=== PATIENT | female | born 1955 | race Caucasian/White ===

== ENCOUNTER → 2019-06-28 | Outpatient (CLI) | payer OTHER ==
[~2019-06-28] MED LIST: AMLO5 PO; Aldactone25 MG PO; Ativan1 MG PO; BISHYD10 PO; BISO5 PO; BUDE10.22 IH; BUDE10.22 INH; CEPH500 PO; CHOL10002 PO; FORM12IH INH; Hydrochlorothia25 MG PO; K-Dur10 MEQ PO; METO50ER PO; SPIR25 PO; SULTRIDS PO; TIOT18 INH; VENL37.5ER PO
== END | disposition home or self-care (01) ==
LOC: PLD 10:03 → LAB SHORT 10:03
DX: D22.71 Melanocytic nevi of right lower limb, including hip (principal); D22.62 Melanocytic nevi of left upper limb, including shoulder
CPT/HCPCS: 88305

== ENCOUNTER → 2021-04-08 | Outpatient (CLI) | payer OTHER ==
[~2021-04-08] MED LIST changes: +ADVAIR HFA 230-28 GM INH; +ALBU2.5V5 NEB; -BUDE10.22 INH; +CLON.5 PO; +HYDCHL12.5 PO; +LORAZEPAM0.5 MG PO; +LOSA50 PO; +PRED20 PO; +ROFL500T PO; +SERT25 PO; +VITAMIN D31000 UNI1 PO; +Ventolin/Prove6.7 GM INH
== END | disposition home or self-care (01) ==
LOC: LAB SHORT 15:02 → LAB 15:02
DX: D22.61 Melanocytic nevi of right upper limb, including shoulder (principal)
CPT/HCPCS: 88305

== ENCOUNTER 2021-06-03 15:56 | Inpatient (IN) | payer OTHER | END 2021-06-07 17:15 | disposition home or self-care (01) | DRG 189 | LOC: ER 15:56 → ERHOLD 22:07 → PCU 06-04 00:43 → MEDS 06-05 14:23 | PROVIDERS: ADMIT Internal Medicine | PROC: 5A09457 Assistance with Respiratory Ventilation, 24-96 Consecutive Hours, Continuous Positive Airway Pressure (ICD-10-PCS; principal; 2021-06-03) | DX: J96.01 Acute respiratory failure with hypoxia (principal); J44.1 Chronic obstructive pulmonary disease with (acute) exacerbation; I10 Essential (primary) hypertension; D72.829 Elevated white blood cell count, unspecified; T38.0X5A Adverse effect of glucocorticoids and synthetic analogues, initial encounter; E21.3 Hyperparathyroidism, unspecified; E83.52 Hypercalcemia; F41.9 Anxiety disorder, unspecified; Z98.41 Cataract extraction status, right eye; Z98.42 Cataract extraction status, left eye; Z90.49 Acquired absence of other specified parts of digestive tract; Z98.890 Other specified postprocedural states; Z88.0 Allergy status to penicillin; Z88.8 Allergy status to other drugs, medicaments and biological substances; Z79.51 Long term (current) use of inhaled steroids; Z79.52 Long term (current) use of systemic steroids; Z79.899 Other long term (current) drug therapy ==

== ENCOUNTER → 2021-06-15 | Outpatient (CLI) | payer OTHER ==
[2021-06-15 15:55] LABS: BASOPHILS ABSOLUTE AUTO 0.04 K/mm3 (0.00-0.23); BASOPHILS PERCENT AUTO 0 % (0-2); EOSINOPHILS PERCENT AUTO 0 % (0-6); Hemoglobin 16.2 g/dL (11.5-16.0); IMMATURE GRAN ABSOLUTE AUTO 0.24 K/mm3 (0.00-0.10); IMMATURE GRAN PERCENT AUTO 1 % (0-1); LYMPHOCYTES ABSOLUTE AUTO 0.66 K/mm3 (0.84-5.20); LYMPHOCYTES PERCENT AUTO 3 % (21-46); MONOCYTES ABSOLUTE AUTO 0.74 K/mm3 (0.16-1.47); MONOCYTES PERCENT AUTO 3 % (4-13); Mean Corpuscular HGB Conc 32.4 g/dL (31.5-36.5); Mean Corpuscular Volume 93 fL (80-100); Mean Platelet Volume 9.9 fL (9.1-12.4); NEUTROPHILS ABSOLUTE AUTO 22.09 K/mm3 (1.96-9.15); NEUTROPHILS PERCENT AUTO 93 % (41-73); Platelet Count 228 K/mm3 (150-400); RDW Coefficient Variation 14.2 % (11.7-14.2); RDW Standard Deviation 47.6 fL (35.1-46.3); White Blood Cell Count 23.77 K/mm3 (4.00-11.30)
[2021-06-15 16:14] LABS: Albumin, Blood 3.6 g/dL (3.4-5.0); Albumin/Globulin Ratio 1.2 (0.8-1.8); Bilirubin, Total 0.4 mg/dL (0.1-1.0); Bun/Creatinine Ratio 18.9 (12.0-20.0); Creatinine, Blood 1.27 mg/dL (0.40-1.00); Free Thyroxine 1.06 ng/dL (0.70-1.60); Globulin, Blood 3.1 g/dL (2.2-4.0); Magnesium, Blood 2.1 mg/dL (1.6-2.4); Potassium, Blood 3.9 mmol/L (3.5-5.5); Thyroid Stimulating Hormone 1.477 uIU/mL (0.360-4.800); Total Protein, Blood 6.7 g/dL (6.4-8.2)
[2021-06-15 16:22] LABS: Calcium, Blood 14.8 mg/dL (8.5-10.1)
== END ==
LOC: LAB 15:51 → LAB SHORT 15:51
PROVIDERS: Physician Assistant Medical
DX: R53.83 Other fatigue (principal); Z88.0 Allergy status to penicillin; Z88.6 Allergy status to analgesic agent
CPT/HCPCS: 80053; 83735; 83970; 84439; 84443; 85025

== ENCOUNTER → 2022-01-07 | Outpatient (CLI) | payer OTHER ==
[2022-01-07 18:33] LABS: Calcium, Urine 5.3 mg/dL (< 17.5); Calcium, Urine Calculation 63.6 mg/24hrs (42.0-353.0)
== END ==
LOC: LAB SHORT 14:47 → LAB FUT 10-09 17:15
PROVIDERS: Specialist
DX: E21.0 Primary hyperparathyroidism (principal)
CPT/HCPCS: 81050; 82340